=== PATIENT | male | born 1975 | race Two or more races ===

== ENCOUNTER 2016-12-29 12:57 | Emergency (ER) | payer OTHER ==
[2016-12-29 13:11] VITALS: BP 99/62; TEMP 98; BMI 29.5
--- NOTE | 2016-12-29 13:22 | PDOC ---
History of Present Illness <AngelicaKerwin - Last Filed: 12/29/16 16:41> - General History Source: Patient Exam Limitations: No Limitations - History of Present Illness Initial Comments: 12/29/16 14:27 The patient is a 41 year old male, with no significant past medical history, who presents to the emergency department with intermittent lower back pain for the past 3 days.The patient states that the back pain started suddenly as he was driving. The patient rates his pain as a 4/10 in severity. The patient has not taken any medications for the back pain. The patient denies fever, chills, nausea, vomiting, diarrhea or constipation. The patient denies any flank pain, dysuria, hematuria or changes in urination. The patient denies any recent injury or trauma. Allergies: None reported. Past Surgical History: None reported. Social History: Non smoker. Denies alcohol or drug use. PCP: Dr. Sweeney <Zoe Duvall - Last Filed: 12/29/16 17:32> - General Chief Complaint: Pain, Acute Stated Complaint: LOWER BACK PAIN Time Seen by Provider: 12/29/16 13:21 Past History - Past Medical History Other medical history: none - Psycho/Social/Smoking Cessation Hx Anxiety: No Suicidal Ideation: No Smoking History: Never smoked Have you smoked in the past 12 months: No Information on smoking cessation initiated: No Hx Alcohol Use: No Drug/Substance Use Hx: No Substance Use Type: None <Kerwin Dominguez - Last Filed: 12/29/16 16:41> <Zoe Duvall - Last Filed: 12/29/16 17:32> - Past Medical History Allergies/Adverse Reactions: Allergies Allergy/AdvReac Type Severity Reaction Status Date / Time No Known Allergies Allergy Verified 12/29/16 13:08 Home Medications: Ambulatory Orders Cyclobenzaprine HCl [Flexeril 10 mg] 10 mg PO TID #30 tablet 12/29/16 Ibuprofen 800 mg PO TID #30 tablet 12/29/16 Review of Systems - Review of Systems Able to Perform ROS?: Yes Comments:: 12/29/16 14:18 GENERAL/CONSTITUTIONAL: No fever or chills. No weakness. HEAD, EYES, EARS, NOSE AND THROAT: No change in vision. No ear pain or discharge. No sore throat. CARDIOVASCULAR: No chest pain or shortness of breath. RESPIRATORY: No cough, wheezing, or hemoptysis. GASTROINTESTINAL: No nausea, vomiting, diarrhea or constipation. GENITOURINARY: No dysuria, frequency, or change in urination. MUSCULOSKELETAL: +Back pain. No joint or muscle swelling or pain. No neck pain. SKIN: No rash. NEUROLOGIC: No headache, vertigo, loss of consciousness, or change in strength/ sensation. ENDOCRINE: No increased thirst. No abnormal weight change. HEMATOLOGIC/LYMPHATIC: No anemia, easy bleeding, or history of blood clots. ALLERGIC/IMMUNOLOGIC: No hives or skin allergy. <Zoe Duvall - Last Filed: 12/29/16 17:32> *Physical Exam - Vital Signs Last Vital Signs Temp Pulse Resp BP Pulse Ox 98.0 F 64 18 99/62 100 12/29/16 13:09 12/29/16 13:09 12/29/16 13:09 12/29/16 13:09 12/29/16 13:09 <Kerwin Dominguez - Last Filed: 12/29/16 16:41> - Vital Signs Last Vital Signs Temp Pulse Resp BP Pulse Ox 98.0 F 64 18 99/62 100 12/29/16 13:09 12/29/16 13:09 12/29/16 13:09 12/29/16 13:09 12/29/16 13:09 - Physical Exam Comments: 12/29/16 14:18 GENERAL: Awake, alert, and fully oriented, in no acute distress. HEAD: No signs of trauma. EYES: PERRLA, EOMI, sclera anicteric, conjunctiva clear. ENT: Auricles normal inspection, hearing grossly normal, nares patent, oropharynx clear without exudates. Moist mucosa. NECK: Normal ROM, supple, no lymphadenopathy, JVD, or masses. LUNGS: Breath sounds equal, clear to auscultation bilaterally. No wheezes, and no crackles. HEART: Regular rate and rhythm, normal S1 and S2, no murmurs, rubs or gallops. ABDOMEN: Soft, nontender, normoactive bowel sounds. No guarding, no rebound. No masses. MUSCULOSKELETAL: No CVA tenderness. EXTREMITIES: Normal range of motion, no edema. No clubbing or cyanosis. No cords , erythema, or tenderness. NEUROLOGICAL: Cranial nerves II through XII intact. Normal speech, normal gait. SKIN: Warm, dry, normal turgor, no rashes or lesions noted. <Zoe Duvall - Last Filed: 12/29/16 17:32> Medical Decision Making - Medical Decision Making 12/29/16 17:32 EXAM: RAD/SPINE - LUMBAR SACRAL Reviewed By: Dr. Albaro Prajapati IMPRESSION: No evidence of acute bony abnormalities. Normal height of vertebral bodies, disc spaces. <Zoe Duvall - Last Filed: 12/29/16 17:32> *DC/Admit/Observation/Transfer - Attestations Physician Attestion: 12/29/16 13:22 I, Dr. Kerwin Dominguez, attest that this document has been prepared under my direction and personally reviewed by me in its entirety. I further attest, that it accurately reflects all work, treatment, procedures and medical decision -making performed by me. <Kerwin Dominguez - Last Filed: 12/29/16 16:41> - Attestations Scribe Attestion: 12/29/16 13:29 Documentation prepared by Zoe Duvall, acting as medical laboratory technologist for Kerwin Dominguez MD/DO. <Zoe Duvall - Last Filed: 12/29/16 17:32> Diagnosis at time of Disposition: Low back pain Qualifiers: Chronicity: acute Back pain laterality: right Sciatica presence: without sciatica Qualified Code(s): M54.5 - Low back pain - Discharge Dispostion Disposition: HOME Condition at time of disposition: Good - Prescriptions Prescriptions: Cyclobenzaprine HCl [Flexeril 10 mg] 10 mg PO TID #30 tablet Ibuprofen 800 mg PO TID #30 tablet - Referrals Referrals: Kojo Sweeney MD [Primary Care Provider] - - Patient Instructions Printed Discharge Instructions: DI for Low Back Pain Additional Instructions: Marco- Thanks for allowing us to care for you today. Sorry it took a little longer that I would have liked. Your Xrays and your Urine Test were normal. Follow up with your doctor next week. Return to us if problems. Motrin for pain. Flexeril for spasm. Best- Dr. Kerwin Dominguez
[2016-12-29] MEDS ORDERED: SODIUM CHLORIDE 1,000 ML IV SCH (13:30)
[2016-12-29 15:21] LABS: URINE APPEARANCE CLEAR; URINE BILIRUBIN NEGATIVE (NEGATIVE); URINE BLOOD NEGATIVE (NEGATIVE); URINE COLOR LTYELLOW; URINE GLUCOSE (UA) NEGATIVE (NEGATIVE); URINE KETONE TRACE (NEGATIVE); URINE LEUK ESTERASE NEGATIVE (NEGATIVE); URINE NITRITE NEGATIVE (NEGATIVE); URINE PROTEIN NEGATIVE (NEGATIVE); URINE UROBILINOGEN NEGATIVE E.U./dl (0.2-1.0)
[2016-12-29 17:23] VITALS: PULSE 75
== END 2016-12-29 17:23 | disposition home or self-care (01) ==
LOC: JER 12:57
DX: M54.5 Low back pain (principal)
CPT/HCPCS: 72100-TC; 81003; 99282-25